=== PATIENT | female | born 1955 | race Caucasian/White ===

== ENCOUNTER → 2021-05-03 | Outpatient (CLI) | payer OTHER ==
--- NOTE | 2021-05-03 11:44 | KCIC ---
EXAM: CT coronary artery calcium screening; radiologist over read. HISTORY: Cardiovascular screening. Family history of heart disease. Hypertension. TECHNIQUE: Computed tomographic images of the chest were obtained without contrast. Multiplanar refor matting was performed. *One or more of the following individualized dose reduction techniques were utilized for this examina tion: 1. Automated exposure control. 2. Adjustment of the mA and/or kV according to patient size. 3. Use of iterative reconstruction technique. COMPARISON: None. FINDINGS: There is a dilated ascending aorta measuring 4.0 cm in caliber. The heart is normal in size . There is no lymphadenopathy. There is a calcified right hilar granuloma. There is no infiltrate, pl eural effusion or pneumothorax. There is a calcified granuloma within the lateral right lower lobe. N o suspicious noncalcified nodule is seen. There is no acute or suspicious osseous finding. Coronary artery calcium score: 0. IMPRESSION: 1. Coronary artery calcium score of 0. No identifiable coronary artery calcification. Low cardiac ris k. 2. Borderline aneurysmal dilatation of the ascending aorta to a caliber of 4.0 cm. Electronically signed by: Gauri Eckert MD (05/03/2021 11:41 AM) [id number]
== END ==
LOC: KCIC CT 09:45
PROVIDERS: ATTEND Family Medicine
DX: Z13.6 Encounter for screening for cardiovascular disorders (principal); I77.810 Thoracic aortic ectasia; J84.10 Pulmonary fibrosis, unspecified; I10 Essential (primary) hypertension; Z82.49 Family history of ischemic heart disease and other diseases of the circulatory system
CPT/HCPCS: 75571